=== PATIENT | male | born 1950 | race Caucasian/White ===

== ENCOUNTER → 2016-12-17 | Outpatient (CLI) | payer OTHER ==
[~2016-12-17] VITALS: Ht 182.9 cm; Wt 108.9 kg
[~2016-12-17] MED LIST: HYDROCHLOROTHIA25 M2 PO; NORVASC5 MG PO; TOPROL XL25 MG PO
--- NOTE | ~2016-12-17 | P ---
[facility] [place] [address] PROCEDURE REPORT Name: DESIRAE ROMERO Ramesh Room #: REG [facility]#: [id number] Admission: 12/17/16 Attend Phys: Marito iPmentel MD Discharge: Date of : 46 Report #: [id number] THIS REPORT FOR: //name// CC: Marito Riojas DO DATE OF SERVICE: 12/17/2016 DATE OF SERVICE: 12/17/2016 BRIEF HISTORY: The patient is a 66-year-old male with a history of multiple flat adenomas removed a year and a half ago. Some were removed in a piecemeal fashion. He presents today for high risk screening colonoscopy in view of his history of colon polyps. PREOPERATIVE DIAGNOSIS: High risk screening colonoscopy. POSTOPERATIVE DIAGNOSES: 1. Multiple colon polyps. 2. Small internal hemorrhoids. MEDICATIONS: Deep sedation with propofol per anesthesia. SPECIMEN: 1. Polyp at 70. 2. Hepatic flexure polyps x2. 3. Cecal polyp. 4. Proximal ascending colon polyp. 5. Polyp at 60 cm. ESTIMATED BLOOD LOSS: 3 mL. PROCEDURE: Colonoscopy to cecum and terminal ileum with snare polypectomy and biopsy. FINDINGS: Prior to propofol sedation, procedure of colonoscopy discussed with the patient as well as potential risks and its complications. He indicates he understands and desires to proceed. DESCRIPTION OF PROCEDURE: With the patient in left lateral decubitus position, digital examination was completed which revealed no abnormalities. Subsequently, the [employer] video colonoscope was introduced into the rectum and advanced under direct vision to the cecum. Done with minimal difficulty. The cecum was identified by the ileocecal valve and the appendiceal orifice. I was able to advance the scope up to the mouth of the ileocecal valve. I could see [facility] [address] [place] [address] PROCEDURE REPORT Name: DESIRAE ROMERO Room #: REG [facility]#: [id number] Admission: 12/17/16 Attend Phys: Marito Pimentel MD Discharge: Date of : 46 Report #: [id number] into the ileocecal valve, but due to looping, we could not enter the distal terminal ileum. I was able to see a villous pattern. At that point, the scope was slowly withdrawn and careful circumferential views obtained. Upon slow withdrawal of the scope, the prep had some limitations of the proximal colon. However, with irrigation and suctioning, we were able to clean up much of this material. As we withdrew the scope, he was found to have multiple polyps. A diminutive polyp was seen in the cecum and removed by biopsy. A diminutive polyp seen and removed by biopsy from the proximal ascending colon. At the hepatic flexure, 2 sessile polyps in the range of about 6 mm were seen and removed by cold snare polypectomy. At 60 cm, another diminutive polyp was seen and removed by biopsy. The scope was further withdrawn and no abnormalities were seen until the scope was withdrawn in the rectum. On retroflexion, internal hemorrhoids were seen. The scope was withdrawn. The patient tolerated the procedure well. CONDITION OF THE PATIENT UPON DISCHARGE: Following procedure, the patient drowsy, arousable and he will be discharged home when fully ambulatory. INSTRUCTIONS TO THE PATIENT AND FAMILY AT THE TIME OF DISCHARGE: The patient had 6 polyps removed today. They all have an adenomatous appearance. In view of the number of polyps and his history of polyps, we will have him return in 3 years for repeat high risk screening colonoscopy. Last colonoscopy was about a year and a half ago. Withdrawal time from the cecum was 16 minutes and 1 second. <ELECTRONICALLY SIGNED> By: Marito Pimentel MD 12/17/16 1948 [id number] Marito Pimentel MD /nt
--- NOTE | ~2016-12-17 | S ---
[facility] [place] [address] SURGICAL PATH RPT PROCEDURE Name: DESIRAE ROMERO Ramesh Room #: REG [facility] [place].#: [id number] Admission: 12/17/16 Date of : 46 Discharge: Report #: [id number] Path Case #: [id number] PATHOLOGY REPORT COLLECTION DATE: 12/17/2016 RECEIVED DATE: 12/17/2016 SUBMITTING PHYS: Dr. Marito Pimentel OTHER PHYS: Dr. Alex Riojas SPECIMEN(S) RECEIVED: A.Polyp at 70cm B.Polyp at hepatic flexure C.Cecal polyp bx D.Proximal ascending colon polyp E.Polyp at 60cm * * * * * * * * * * * * FINAL DIAGNOSIS: A. "Polyp at 70 cm", biopsy: - Tubular adenoma; no high-grade dysplasia. B. "Polyp at hepatic flexure", biopsy: - Tubular adenoma; no high-grade dysplasia C. "Cecal polyp BX", biopsy: - Tubular adenoma; no high-grade dysplasia D. "Proximal ascending colon polyp", biopsy: - Tubular adenoma; no high-grade dysplasia E. "Polyp at 60 cm", biopsy: - Hyperplastic polyp. (CLW:pit; 12/18/2016) PATHOLOGIST: America Vegas M.D. REPORT ELECTRONICALLY SIGNED BY: America Vegas M.D. DATE/TIME: 12/18/2016 22:01 * * * * * * * * * * * * GROSS PATHOLOGY: A. The specimen is received in formalin, labeled "Desirae Romero and polyp at 70 cm", is a polypoid fragment of chiang soft tissue 0.4 x 0.2 x 0.2 cm (inked black, bisected), also in the container is a chiang soft tissue 0.4 x 0.2 cm. Entire specimen submitted in A1. B. The specimen is received in formalin, labeled "Desirae Romero and polyp at hepatic flexure", are four fragments of polypoid soft tissue ranging from 0.3 up to 1.2 cm in greatest dimension and measuring 1.2 x 0.4 x 0.2 cm in aggregate. Entirely submitted in two cassettes. B1 largest fragment and B2 remaining fragments. C. The specimen is received in formalin, labeled "Desirae Romero and [address] [address] SURGICAL PATH RPT PROCEDURE Name: DESIRAE ROMERO Ramesh Room #: REG [facility]#: [id number] Admission: 12/17/16 Date of : 46 Discharge: Report #: [id number] Path Case #: [id number] biopsy of cecal polyp", polypoid fragment of chiang soft tissue 0.4 x 0.3 cm. Entirely submitted in C1. D. The specimen is received in formalin, labeled "Desirae Romero and polyp at proximal ascending colon", irregular fragment of chiang soft tissue 0.5 x 0.2 cm. Entirely submitted in D1. E. The specimen is received in formalin, labeled "Desirae Romero and biopsy of polyp at 60 cm", are three polypoid fragment of chiang soft tissue 0.2, 0.3 and 0.4 cm in greatest dimension. Entirely submitted in E1. (SWS; 12/17/2016) CLINICAL HISTORY: History polyps, colon polyps INITIAL CPT CODE(S): A; 84683 B; 65213 C; 87892 D; 18748 E; 44160 Professional services performed by [facility] at [place] [address], [place] [address] Technical services performed by [facility] at [address] [place] [address], [address], [place] [address]. [facility] [address] [place] [address] PHONE: [phone] DIRECTOR: Jose J Bingham M.D. * * * END OF REPORT * * *
== END ==
LOC: GI 07:02
DX: Z09 Encounter for follow-up examination after completed treatment for conditions other than malignant neoplasm (principal); K63.5 Polyp of colon; K64.8 Other hemorrhoids; I10 Essential (primary) hypertension; E78.5 Hyperlipidemia, unspecified; Z98.890 Other specified postprocedural states; Z79.899 Other long term (current) drug therapy
CPT/HCPCS: 62110; 62900